=== PATIENT | male | born 1960 | race Caucasian/White ===

== ENCOUNTER 2017-01-30 00:43 | Observation (INO) ==
[2017-01-30] MEDS ORDERED: 0.9 % Sodium Chloride 1,000 ML IVC ONE (02:52)
--- NOTE | 2017-01-30 03:08 | Emergency Department Note ---
Disposition Clinical Impression: Dizziness, nonspecific Disposition: Admitted As Inpatient Condition: Fair Referrals: NO,PCP [Primary Care Provider] - Forms: ED Satisfaction Letter Time of Disposition: 04:58 Dizziness HPI - General Chief Complaint: ED Dizziness Stated Complaint: dizziness, tongue and lips are numb Time Seen by Provider: 01/30/17 02:40 Source: patient Mode of arrival: ambulatory Limitations: no limitations Nursing Notes Reviewed: Yes Vital Signs Reviewed: Yes - History of Present Illness HPI Narrative: Alert, oriented, nontoxic-appearing 56-year-old male presents for evaluation of multiple complaints. The patient complains of dizziness, numbness of his tongue and lips, a brief episode of chest pain that radiated into his subscapular region, generalized muscle "cramps", difficulty focusing on objects , and headache that began at approximately 1830 hrs. yesterday evening. He states that symptoms have subsided substantially, however remain aside from the chest pain. He denies any previous history of episodes similar to this. He denies any fever, chills, nausea, vomiting, or diarrhea. He denies any shortness of breath or abdominal pain. He denies any cough or sputum production. He denies any hemoptysis. He denies any recent injuries or traumas. He denies any weaknesse or paresthesias of the extremities. Pt Subjective Complaint: dizziness Onset (ago): hour(s) (1830) Timing: sudden onset History of similar episodes: No History of trauma: No Severity: moderate Improves with: nothing Worsens with: nothing Associated symptoms: Reports: chest pain. Denies: fever, chills, shortness of breath, nausea, vomiting, palpitations - Related Data Allergies Allergy/AdvReac Type Severity Reaction Status Date / Time No Known Allergies Allergy Verified 01/30/17 00:49 All systems ED: reviewed and negative except as stated. Constitutional: Denies: fever, chills, weakness, weight change Eyes: Denies: eye pain, eye discharge, vision change ENT ED: Denies: ear pain, throat pain, dental pain, hearing loss, epistaxis, congestion, dysphagia Cardiovascular: Denies: chest pain, palpitations, dyspnea on exertion, edema, syncope Respiratory: Denies: cough, dyspnea, wheezes, hemoptysis, stridor Gastrointestinal: Denies: abdominal pain, nausea, vomiting, diarrhea, constipation, hematemesis, melena, hematochezia Genitourinary: Denies: urgency, dysuria, frequency, hematuria Musculoskeletal: Denies: back pain, neck pain, arthralgia, myalgia Integumentary: Denies: rash, abrasion, lesions Neurological: Denies: headache, weakness, numbness, paresthesias, confusion, abnormal gait, vertigo Psychiatric: Denies: anxiety, depression, suicidal thoughts, homicidal thoughts , auditory hallucinations, visual hallucinations Endocrine: Denies: fatigue Hematological/Lymphatic: Denies: easy bleeding, easy bruising Allergic/Immunologic: Denies: facial swelling, urticaria Past Medical History - Past Medical History Attestation: Yes The following information was validated with the patient. Source: patient, nursing notes reviewed Medical history: Reports: hyperlipidemia, hypertension - Social History Smoking Status: Current every day smoker Smokeless Tobacco Status: No Alcohol use: Reports: none Drug use: Reports: none Physical Exam - General General appearance: alert, in no apparent distress - Head Head exam: atraumatic, normocephalic, normal inspection - Eye Eye exam: Present: normal appearance, PERRL, EOMI, nystagmus (Slight horizontal nystagmus as noted most prominently on the right lateral gaze), other (Slight lateral strabismus of the right eye noted upon extraocular muscle testing with right lateral gaze) - ENT ENT exam: mucous membranes moist - Neck Neck exam: Present: normal inspection, full ROM, trachea midline. Absent: tenderness, meningismus, lymphadenopathy - Chest Chest inspection: Present: normal inspection, symmetric chest wall rise - Respiratory Respiratory exam: Present: normal lung sounds bilaterally. Absent: respiratory distress, wheezes, stridor, accessory muscle use, prolonged expiratory phase - Cardiovascular Cardiovascular exam: Present: regular rate, normal rhythm, normal heart sounds - Abdominal Exam Abdominal exam: Present: soft, Non-Tender, normal bowel sounds. Absent: tenderness, distention, guarding, rebound, rigidity - Extremities Exam Extremities exam: Present: normal inspection, full ROM. Absent: tenderness, pedal edema - Neurological Exam Neurological exam: Present: alert, oriented X3 - Expanded Neurological Exam Cranial nerves: EOM function (II, III, IV, ): Normal, facial sensation (V): Normal, facial palsy (VII): Normal, spinal accessory function (XI): Normal, tongue deviation (XII): Normal Cerebellar function: finger to nose: Normal Motor strength - LUE: 5/5 Motor strength - RUE: 5/5 Motor strength - LLE: 5/5 Motor strength - RLE: 5/5 Coma Scale Eye Opening: Spontaneous Coma Scale Motor Response: Obeys Commands Coma Scale Verbal Response: Oriented Coma Scale Total: 15 - Psychiatric Psychiatric exam: Present: normal affect, normal mood - Skin Skin exam: Present: warm, dry, intact, normal color Course Course Narrative: 0330: Discussed this patient's case with Dr. Boswell. Dr. Boswell has had a [id number] evaluation with the patient. Dr. Boswell recommends admission to the hospitalist service for an inpatient neurology consult. The patient is agreeable to this plan. 0455: I spoke with Dr. Goldberg of the hospitalist group who has accepted the patient for admission to the hospitalist service. Vital Signs Temperature 97.7 F 01/30/17 00:45 Pulse Rate 51 01/30/17 00:45 Respiratory Rate 18 01/30/17 00:45 Blood Pressure 123/82 01/30/17 00:45 O2 Sat by Pulse Oximetry 96 01/30/17 00:45 Temperature 97.7 F 01/30/17 00:45 Pulse Rate 51 01/30/17 00:45 Respiratory Rate 18 01/30/17 00:45 Blood Pressure 123/82 01/30/17 00:45 O2 Sat by Pulse Oximetry 96 01/30/17 00:45 Oxygen Delivery Oxygen Delivery Room Air Dizziness - Medical Records Medical records reviewed: Yes I reviewed the patient's medical records. - Lab Data Lab results reviewed: Yes I reviewed the patient's lab results. Lab results narrative: Laboratory Last Values WBC 5.6 K/mcL (4.3-11.1) 01/30/17 04:05 RBC 4.26 M/mcL (4.19-5.50) 01/30/17 04:05 Hgb 13.0 g/dL (12.9-16.9) 01/30/17 04:05 Hct 38.7 % (37.5-50.1) 01/30/17 04:05 MCV 90.8 fL (83.0-100.0) 01/30/17 04:05 MCH 30.5 pg (28.0-33.3) 01/30/17 04:05 MCHC 33.6 g/dL (31.6-35.5) 01/30/17 04:05 RDW 12.4 % (11.5-14.5) 01/30/17 04:05 Plt Count 238 K/mcL (140-400) 01/30/17 04:05 MPV 10.2 fL (9.4-12.4) 01/30/17 04:05 Immature Gran % 0.4 % (0-4) 01/30/17 04:05 Seg Neutrophils % 64.3 % 01/30/17 04:05 Lymphocytes % 22.7 % 01/30/17 04:05 Monocytes % 7.9 % 01/30/17 04:05 Eosinophils % 3.4 % 01/30/17 04:05 Basophils % 1.3 % 01/30/17 04:05 Neutrophils # 3.6 K/mcL (1.6-8.9) 01/30/17 04:05 Lymphocytes # 1.3 K/mcL (0.6-4.6) 01/30/17 04:05 Monocytes # 0.4 K/mcL (0.0-1.3) 01/30/17 04:05 Eosinophils # 0.2 K/mcL (0.0-0.6) 01/30/17 04:05 Basophils # 0.1 K/mcL (0.0-0.2) 01/30/17 04:05 PT 38.6 Seconds (9.4-12.1) H 01/30/17 04:05 INR 3.4 01/30/17 04:05 APTT 74.5 Seconds (26.0-36.0) H 01/30/17 04:05 Sodium 137 mEq/L (136-145) 01/30/17 04:05 Potassium 4.4 mEq/L (3.5-4.5) 01/30/17 04:05 Chloride 103 mEq/L (98-109) 01/30/17 04:05 Carbon Dioxide 26 mEq/L (19-29) 01/30/17 04:05 BUN 28 mg/dL (8-26) H 01/30/17 04:05 Creatinine 1.41 mg/dL (0.72-1.25) H 01/30/17 04:05 Est GFR ( Amer) > 60 (> 60) 01/30/17 04:05 Est GFR (Non-Af Amer) 52 (> 60) L 01/30/17 04:05 BUN/Creatinine Ratio 20 (6-26) 01/30/17 04:05 Glucose 128 mg/dL (70-99) H 01/30/17 04:05 Calculated Osmolality 291 (280-300) 01/30/17 04:05 Calcium 9.7 mg/dL (8.6-10.8) 01/30/17 04:05 Magnesium 2.1 mg/dL (1.6-2.6) 01/30/17 04:05 Total Bilirubin 0.7 mg/dL (0.2-1.2) 01/30/17 04:05 AST 29 Units/L (5-34) 01/30/17 04:05 ALT 20 Units/L (0-55) 01/30/17 04:05 Alkaline Phosphatase 47 Units/L (38-126) 01/30/17 04:05 Ammonia 19 mcmol/L (18-72) 01/30/17 04:05 Troponin I 0.00 ng/mL (0-0.03) 01/30/17 04:05 Serum Total Protein 7.4 g/dL (6.0-8.3) 01/30/17 04:05 Albumin 4.0 g/dL (3.5-5.0) 01/30/17 04:05 Globulin 3.4 g/dL (2.4-3.5) 01/30/17 04:05 Albumin/Globulin Ratio 1.2 (1.1-2.2) 01/30/17 04:05 Result diagrams: 01/30/17 04:05 01/30/17 04:05 Lab Results 01/30/17 01/30/17 01/30/17 Range/Units 04:05 04:05 04:05 WBC 5.6 (4.3-11.1) K/mcL RBC 4.26 (4.19-5.50) M/mcL Hgb 13.0 (12.9-16.9) g/dL Hct 38.7 (37.5-50.1) % MCV 90.8 (83.0-100.0) fL MCH 30.5 (28.0-33.3) pg MCHC 33.6 (31.6-35.5) g/dL RDW 12.4 (11.5-14.5) % Plt Count 238 (140-400) K/mcL MPV 10.2 (9.4-12.4) fL Immature Gran % 0.4 (0-4) % Seg Neutrophils % 64.3 % Lymphocytes % 22.7 % Monocytes % 7.9 % Eosinophils % 3.4 % Basophils % 1.3 % Neutrophils # 3.6 (1.6-8.9) K/mcL Lymphocytes # 1.3 (0.6-4.6) K/mcL Monocytes # 0.4 (0.0-1.3) K/mcL Eosinophils # 0.2 (0.0-0.6) K/mcL Basophils # 0.1 (0.0-0.2) K/mcL PT 38.6 H (9.4-12.1) Seconds INR 3.4 APTT 74.5 H (26.0-36.0) Seconds Sodium 137 (136-145) mEq/L Potassium 4.4 (3.5-4.5) mEq/L Chloride 103 (98-109) mEq/L Carbon Dioxide 26 (19-29) mEq/L BUN 28 H (8-26) mg/dL Creatinine 1.41 H (0.72-1.25) mg/dL Est GFR ( Amer) > 60 (> 60) Est GFR (Non-Af Amer) 52 L (> 60) BUN/Creatinine Ratio 20 (6-26) Glucose 128 H (70-99) mg/dL Calculated Osmolality 291 (280-300) Calcium 9.7 (8.6-10.8) mg/dL Magnesium 2.1 (1.6-2.6) mg/dL Total Bilirubin 0.7 (0.2-1.2) mg/dL AST 29 (5-34) Units/L ALT 20 (0-55) Units/L Alkaline Phosphatase 47 (38-126) Units/L Ammonia (18-72) mcmol/L Troponin I (0-0.03) ng/mL Serum Total Protein 7.4 (6.0-8.3) g/dL Albumin 4.0 (3.5-5.0) g/dL Globulin 3.4 (2.4-3.5) g/dL Albumin/Globulin Ratio 1.2 (1.1-2.2) 01/30/17 01/30/17 Range/Units 04:05 04:05 WBC (4.3-11.1) K/mcL RBC (4.19-5.50) M/mcL Hgb (12.9-16.9) g/dL Hct (37.5-50.1) % MCV (83.0-100.0) fL MCH (28.0-33.3) pg MCHC (31.6-35.5) g/dL RDW (11.5-14.5) % Plt Count (140-400) K/mcL MPV (9.4-12.4) fL Immature Gran % (0-4) % Seg Neutrophils % % Lymphocytes % % Monocytes % % Eosinophils % % Basophils % % Neutrophils # (1.6-8.9) K/mcL Lymphocytes # (0.6-4.6) K/mcL Monocytes # (0.0-1.3) K/mcL Eosinophils # (0.0-0.6) K/mcL Basophils # (0.0-0.2) K/mcL PT (9.4-12.1) Seconds INR APTT (26.0-36.0) Seconds Sodium (136-145) mEq/L Potassium (3.5-4.5) mEq/L Chloride (98-109) mEq/L Carbon Dioxide (19-29) mEq/L BUN (8-26) mg/dL Creatinine (0.72-1.25) mg/dL Est GFR ( Amer) (> 60) Est GFR (Non-Af Amer) (> 60) BUN/Creatinine Ratio (6-26) Glucose (70-99) mg/dL Calculated Osmolality (280-300) Calcium (8.6-10.8) mg/dL Magnesium (1.6-2.6) mg/dL Total Bilirubin (0.2-1.2) mg/dL AST (5-34) Units/L ALT (0-55) Units/L Alkaline Phosphatase (38-126) Units/L Ammonia 19 (18-72) mcmol/L Troponin I 0.00 (0-0.03) ng/mL Serum Total Protein (6.0-8.3) g/dL Albumin (3.5-5.0) g/dL Globulin (2.4-3.5) g/dL Albumin/Globulin Ratio (1.1-2.2) - Radiology Data Radiology results reviewed: Yes I reviewed the patient's radiology results. Chest X-Ray 01/30/17 02:52 IMPRESSION: No acute process. D/ / Sebastien Williamson MD / Sebastien Williamson MD Interpreting Provider: Sebastien Williamson MD Head CT 01/30/17 02:52 IMPRESSION: No acute intracranial abnormality. Right sphenoid sinusitis. D/ / Sebastien Williamson MD / Sebastien Williamson MD Interpreting Provider: Sebastien Williamson MD - EKG Data EKG attestation: Yes I reviewed and interpreted this EKG. EKG results narrative: EKG shows a sinus bradycardia with a moderate T wave abnormality at a rate of 55 bpm. No ectopy noted. No STEMI. EKG reviewed by Dr. Boswell as well. Old EKG for comparison.
[2017-01-30 04:13] LABS: Basophils # 0.1 K/mcL (0.0-0.2); Basophils % 1.3 %; Eosinophils # 0.2 K/mcL (0.0-0.6); Eosinophils % 3.4 %; Hematocrit 38.7 % (37.5-50.1); Immature Granulocytes % 0.4 % (0-4); Lymphocytes # 1.3 K/mcL (0.6-4.6); Lymphocytes % 22.7 %; Mean Corpuscular HGB Conc 33.6 g/dL (31.6-35.5); Mean Corpuscular Hemoglobin 30.5 pg (28.0-33.3); Mean Corpuscular Volume 90.8 fL (83.0-100.0); Mean Platelet Volume 10.2 fL (9.4-12.4); Monocytes # 0.4 K/mcL (0.0-1.3); Monocytes % 7.9 %; Neutrophils # 3.6 K/mcL (1.6-8.9); Platelet Count 238 K/mcL (140-400); Red Blood Count 4.26 M/mcL (4.19-5.50); Red Cell Distribution Width 12.4 % (11.5-14.5); Segmented Neutrophils % 64.3 %
[2017-01-30 04:18] LABS: INR 3.4; Prothrombin Time 38.6 Seconds (9.4-12.1)
[2017-01-30 04:21] LABS: Activated Partial Thrombo Time 74.5 Seconds (26.0-36.0)
[2017-01-30 04:26] LABS: Alanine Aminotransferase 20 Units/L (0-55); Albumin/Globulin Ratio 1.2 (1.1-2.2); Alkaline Phosphatase 47 Units/L (38-126); Aspartate Amino Transferase 29 Units/L (5-34); BUN/Creatinine Ratio 20 (6-26); Bilirubin,Total 0.7 mg/dL (0.2-1.2); Blood Urea Nitrogen 28 mg/dL (8-26); Calcium 9.7 mg/dL (8.6-10.8); Carbon Dioxide 26 mEq/L (19-29); Chloride 103 mEq/L (98-109); Globulin 3.4 g/dL (2.4-3.5); Glucose 128 mg/dL (70-99); Magnesium 2.1 mg/dL (1.6-2.6); Osmolality,Calculated 291 (280-300); Potassium 4.4 mEq/L (3.5-4.5); Sodium 137 mEq/L (136-145); Total Protein 7.4 g/dL (6.0-8.3); eGFR For African Americans > 60 (> 60); eGFR For Non-African Americans 52 (> 60)
[2017-01-30] MEDS ORDERED: Naloxone 0.4 MG/ML INJ IVP PRN (04:55)
[2017-01-30] MEDS ORDERED: Acetaminophen 325 MG TABLET PO PRN (04:55)
[2017-01-30] MEDS ORDERED: Ondansetron 4 MG/2 ML VIAL IVP PRN (04:55)
--- NOTE | 2017-01-30 05:34 | Internal Med History&Physical ---
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 Unlikely to be CVA/TIA as the patient has an INR of 3.4 Will obtain an MRI to further evaluate this. Depending on the results of the MRI, will consider neurology consult. (2) HTN (hypertension) Current visit: Yes Status: Chronic Controlled BP Continue home meds Qualifiers: Hypertension type: essential hypertension Qualified Code(s): I10 - Essential (primary) hypertension (3) Status post mechanical aortic valve replacement Current visit: Yes Status: Chronic INR mildly elevated Continue home dose of coumadin. Check INR and adjust dose accordinglly Internal Medicine - H&P: HPI Chief complaint: Dizziness Admitted From: Emergency Dept Plans for Post Hospital Care: Home History of present illness: Mr. Templeton is a 56 year old male presented to ER due to sudden onset dizziness. Patient states that at baseline, he is usually ambulatory and independent. However, at 6 PM yesterday, he started experiencing a sense of imbalance and swaying all over. He reports double vision on looking to the right but in no other gaze positions. He reports chronic blurry vision. He denies any difficulty swallowing, headache, head injury. He reports some nausea but no vomiting. Denies CP, SOB, wheezing, fever, chills. Reports dry cough. Denies swelling in his legs, rash or bruising. No recent weight changes or changes in his appetite. No urinary symptoms. Past Med Surg Social Fam HX - Past Medical History Attestation: Yes The following information was validated with the patient. Source: patient Medical history: hyperlipidemia, hypertension, other (Aortic dissection) Psychiatric history: no psych history - Past Surgical History Surgical History: other (Mechacinal aortic valve surgery for Aortic Dissection) - Social History Smoking Status: Current every day smoker Smokeless Tobacco Status: No Alcohol use: none Drug use: none Current living situation: Home, With Family Activity Level: Independent ambulation Recent Out of Country Travel Within the Last 8 Weeks: No Exposure or Possible Exposure to Illness During Travel: No - Additional Family History Additional family history: Reviewed; not pertinent Internal Medicine - H&P: Meds Allergies No Known Allergies Allergy (Verified 01/30/17 00:49) All Systems PM: A 10-system review of systems was performed and is negative for pertinent findings except as documented above in the HPI. Review of systems: 10 systems have been reviewed and are negative except as mentioned in the history of present illness - Constitutional Vitals: Temp Pulse Resp BP Pulse Ox 97.7 F 51 18 130/80 96 01/30/17 00:45 01/30/17 00:45 01/30/17 05:19 01/30/17 05:19 01/30/17 00:45 Exam: Gen.: Lying in bed. No acute distress. Eyes: Pupils equal, round and reactive to light. Extraocular muscles intact. ENT: Moist mucous membranes. No oropharyngeal erythema or discharge. Chest: Clear to auscultation bilaterally. No adventitious sounds present. CVS: First and second heart sounds present. No murmurs, rubs or gallops. Abdomen: Soft, nontender, nondistended. Bowel sounds present. No hepatosplenomegaly. Skin: No decubitus ulcers appreciated. EXECUTIVE ADVISOR: Left 6th nerve palsy. Vertical nystagmus present on all extremes. Other cranial nerves intact. Power 5/5 all 4 extremities. Psychiatric: Alert, awake and oriented to time, place and person. Lymphatic system: No lymphadenopathy appreciated Internal Med - H&P Results - Labs CBC & Chem 7: 01/30/17 04:05 01/30/17 04:05 Labs: Short CBC 01/30/17 Range/Units 04:05 WBC 5.6 (4.3-11.1) K/mcL Hgb 13.0 (12.9-16.9) g/dL Hct 38.7 (37.5-50.1) % Plt Count 238 (140-400) K/mcL Neutrophils # 3.6 (1.6-8.9) K/mcL BMP 01/30/17 04:05 Sodium 137 Potassium 4.4 Chloride 103 Carbon Dioxide 26 BUN 28 H Creatinine 1.41 H Glucose 128 H Calcium 9.7 Cardiac Enzymes 01/30/17 Range/Units 04:05 Troponin I 0.00 (0-0.03) ng/mL Liver Function 01/30/17 Range/Units 04:05 Total Bilirubin 0.7 (0.2-1.2) mg/dL AST 29 (5-34) Units/L ALT 20 (0-55) Units/L Alkaline Phosphatase 47 (38-126) Units/L Albumin 4.0 (3.5-5.0) g/dL - EKG Data -: EKG Interpreted by Myself EKG shows normal: sinus rhythm, ST-T waves (T-inversions lateral leads) - EKG Data Prior EKG available for review: no - Impressions ITS Impressions Chest X-Ray 01/30/17 02:52 IMPRESSION: No acute process. D/ / Sebastien Williamson MD / Sebastien Williamson MD Interpreting Provider: Sebastien Williamson MD Head CT 01/30/17 02:52 IMPRESSION: No acute intracranial abnormality. Right sphenoid sinusitis. D/ / Sebastien Williamson MD / Sebastien Williamson MD Interpreting Provider: Sebastien Williamson MD - Diagnostic Studies Chest x-ray Status: image reviewed by me (No acute abnormality detected)
[2017-01-30 05:50] LABS: Bilirubin,Urine Negative (Negative); Blood,Urine Negative (Negative); Clarity,Urine Clear (Clear); Color,Urine Yellow (Yellow); Glucose,Urine (UA) Normal (Normal); Ketones,Urine Negative (Negative); Leukocyte Esterase,Urine Negative (Negative); Nitrite,Urine Negative (Negative); PH,Urine 6.5 pH Units (5.0-8.0); Protein,Urine Negative (Neg-Trace); Specific Gravity,Urine 1.023 (1.010-1.025); Urobilinogen,Urine Normal (Normal)
--- NOTE | 2017-01-30 16:39 | Event Note ---
Date of Encounter: 01/30/17 Time of Encounter: 09:20 Pt was seen and assessed at about 9:20 AM. He is sitting up in bed, alert, oriented, speech clear. He denies headache or chest pain. He denies any vision changes, states that he normally has blurred vision without his glasses. He does state that he feels some better today, his mouth is less tingly than it was last night. He reports some mild right facial numbness. He says that he has not tried to get up, he says he feels less dizzy than he did last night. He says he was sitting inside in the air-conditioning last night watching TV, had sudden onset dizziness with tongue and both bottom and upper lips being numb. Began it 6 PM last night. Female in the room says that she called him at about 11 PM and that she went to his house to check on him and he was staggering and dizzy when he was walking. Patient reports diplopia when looking to the right, there is also horizontal nystagmus when looking to the right.. His pupils are equal and round reactive to light. His facial movements are symmetrical, speech is clear, grasps and movement against resistance are all strong and equal bilaterally both upper and lower extremities. She had MRI today. I received a phone call from MRI department saying that the radiologist saw something and would like to continue this scan with contrast. I okayed that, due to patient's vomiting there were unable to continue the test. Patient also had an episode of vomiting this morning for breakfast. He did not eat much of his breakfast this morning. I discussed the case with Dr. Tan, he ordered ACTH, TSH and a prolactin. They will be drawn in the morning. Dr. Tan will see patient tomorrow. INR is slightly elevated 3.4. Pharmacy is dosing. Continue to monitor labs. Blood pressure has been within normal limits. We will continue to monitor. Patient is on telemetry we will continue that, as well. Chest X-Ray 01/30/17 02:52 IMPRESSION: No acute process. D/ / Sebastien Williamson MD / Sebastien Williamson MD Interpreting Provider: Sebastien Williamson MD Head CT 01/30/17 02:52 IMPRESSION: No acute intracranial abnormality. Right sphenoid sinusitis. D/ / Sebastien Williamson MD / Sebastien Williamson MD Interpreting Provider: Sebastien Williamson MD Brain MRI 01/30/17 05:31 IMPRESSION: Limited due to early termination of the exam. Postcontrast axial and sagittal T1 weighted images were not obtained. There is no acute intracranial abnormality. 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 Mild extension into the bilateral cavernous sinuses, surrounding less than 50% the circumference of the bilateral cavernous internal carotid arteries. D/ / Williams Velázquez MD / Williams Velázquez MD Interpreting Provider: Williams Velázquez MD
--- NOTE | 2017-01-30 17:46 | Electrocardiograph Report ---
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
[2017-01-30] MEDS ORDERED: Warfarin perPT PO PRN (18:00)
[2017-01-30] MEDS: Famotidine 20 MG TABLET PO SCH (21:11)
[2017-01-31 04:30] LABS: Basophils # 0.1 K/mcL (0.0-0.2); Basophils % 1.4 %; Eosinophils # 0.3 K/mcL (0.0-0.6); Eosinophils % 5.5 %; Hematocrit 36.4 % (37.5-50.1); Hemoglobin 12.1 g/dL (12.9-16.9); Immature Granulocytes % 0.3 % (0-4); Lymphocytes # 2.2 K/mcL (0.6-4.6); Lymphocytes % 35.8 %; Mean Corpuscular HGB Conc 33.2 g/dL (31.6-35.5); Mean Corpuscular Hemoglobin 30.2 pg (28.0-33.3); Mean Corpuscular Volume 90.8 fL (83.0-100.0); Mean Platelet Volume 10.2 fL (9.4-12.4); Monocytes # 0.5 K/mcL (0.0-1.3); Monocytes % 8.7 %; Platelet Count 240 K/mcL (140-400); Red Blood Count 4.01 M/mcL (4.19-5.50); Red Cell Distribution Width 12.3 % (11.5-14.5); Segmented Neutrophils % 48.3 %
[2017-01-31 04:33] LABS: INR 2.8; Prothrombin Time 31.6 Seconds (9.4-12.1)
[2017-01-31 04:43] LABS: BUN/Creatinine Ratio 18 (6-26); Blood Urea Nitrogen 25 mg/dL (8-26); Carbon Dioxide 26 mEq/L (19-29); Chloride 106 mEq/L (98-109); Glucose 95 mg/dL (70-99); Osmolality,Calculated 290 (280-300); Potassium 4.1 mEq/L (3.5-4.5); Sodium 138 mEq/L (136-145); eGFR For African Americans > 60 (> 60); eGFR For Non-African Americans 54 (> 60)
[2017-01-31 05:06] LABS: Thyroid Stimulating Hormone 2.329 mcIU/mL (0.350-4.840)
[2017-01-31 05:45] LABS: Prolactin 14.05 ng/mL (3.46-19.40)
--- NOTE | 2017-01-31 07:48 | Neurology - Consult Note ---
Date of Encounter: 01/31/17 Time of Encounter: 07:46 Assessment and Plan (1) Pituitary macroadenoma Current Visit: Yes Status: Acute I did review the MRI scan of the brain which does reveal a 6.7 x 1.9 x 2.5 cm hypoenhancing mass in the sellar region which does extend into the cavernous sinuses and envelops the internal carotid arteries by less than 50%. Although I do not believe that this lesion is directly related to his cause of admission it is something that needs further addressing. I did speak to the attending physician yesterday and recommended getting a TSH and prolactin as well as ACTH levels. The TSH and prolactin levels were normal. This is therefore something that will need to be assessed by a neurosurgeon. I recommended Hugo Altman in [place]. Regarding the episode that initially brought into the hospital I believe it may have been a vasovagal reaction perhaps secondary to the extreme heat versus a panic or anxiety attack. The case was discussed with the internal medicine attending. I do not believe any further neurologic intervention is necessary as a potential to his admitting complaint. History of Present Illness HPI: Mr. Templeton is a 56 year old male who was seen for neurologic evaluation secondary to an abnormal MRI. He was admitted due to symptoms of dizziness. He states he was sitting home 2 days ago watching television and it was very hot in his home. He states that suddenly he experienced numbness of his tongue and of his mouth. He noticed blurred vision and states that when he stood and tried to walk he felt off balance. He denied any headache. He denied any numbness tingling or weakness of the arms or legs. Symptoms were localized only to the tongue and lips. Symptoms lasted for about a day and have now resolved. MRI scan of the brain revealed what appears to be a pituitary macroadenoma. I did ask the patient when he was experiencing problems with peripheral vision and he denies this. Past Med Surg Social Fam HX - Past Medical History Medical history: hyperlipidemia, hypertension, other Psychiatric history: no psych history - Past Surgical History Surgical History: other - Social History Smoking Status: Current every day smoker Packs per day: 0.5 Smokeless Tobacco Status: No Alcohol use: none Drug use: none - Family History Father Hx Family Endocrine Disorder: Yes (DIABETES MELLITUS.) Medications and Allergies Atorvastatin Calcium [Lipitor] 80 mg PO DAILY 01/30/17 [History] Fenofibrate Nanocrystallized [Tricor] 145 mg PO DAILY 01/30/17 [History] Losartan Potassium [Cozaar] 100 mg PO DAILY 01/30/17 [History] Nebivolol HCl [Bystolic] 10 mg PO DAILY 01/30/17 [History] Warfarin [Coumadin] 5 mg PO SUTUTH 01/30/17 [History] Warfarin [Coumadin] 7.5 mg PO MOWEFRSA 01/30/17 [History] Allergies No Known Allergies Allergy (Verified 01/30/17 00:49) All Systems: A 10-system review of systems was performed and is negative for pertinent findings except as documented above in the HPI. Review of Systems: Review of systems is consistent with a history of present illness and is otherwise negative. Physical Examination - Vital Signs Vital Signs: Initial Vital Signs Temp Pulse Resp BP Pulse Ox 97.7 F 51 18 123/82 96 01/30/17 00:45 01/30/17 00:45 01/30/17 00:45 01/30/17 00:45 01/30/17 00:45 - Neurologic Detailed motor examination: full strength in all major muscle groups Motor examination - right side: 5/5: deltoids, biceps, triceps, wrist flexion, wrist extension, coin machine operator, hip flexors, tibialis Anterior, quadriceps, toe extension (EHL), plantarflexion Motor examination - left side: 5/5: deltoids, biceps, triceps, wrist flexion, wrist extension, hip flexors, coin machine operator, quadriceps, tibialis Anterior, toe extension (EHL), plantarflexion Mental Status Examination: awake, alert, oriented to person, oriented to place, oriented to time, follows commands appropriately, answers questions appropriately, no agnosia, no aphasia, no aproxia Cranial nerve examination: PERRL, EOMI, visual graf intact, corneal reflexes brisk symmetrically, sensory to face intact, mastication intact, no facial asymmetry is present, no dysarthria, hearing is intact symmetrically, soft palate elevates bilaterally upon phonation, gag reflex intact, flexes SCM and trapezius muscles symmetrically with full power, tongue protrudes midline, no atrophy or facial fasiculations present Cerebellar examination: no dysmetria, performs finger to nose and heel to simon symmetrically without ataxia, no gait ataxia, no truncal ataxia, no difficulty with rapid alternating movements Results - Laboratory Findings CBC and BMP: 01/31/17 03:49 01/31/17 03:49 Abnormal lab findings: Abnormal lab results RBC 4.01 M/mcL (4.19-5.50) L 01/31/17 03:49 Hgb 12.1 g/dL (12.9-16.9) L 01/31/17 03:49 Hct 36.4 % (37.5-50.1) L 01/31/17 03:49 PT 31.6 Seconds (9.4-12.1) H 01/31/17 03:49 APTT 74.5 Seconds (26.0-36.0) H 01/30/17 04:05 Creatinine 1.36 mg/dL (0.72-1.25) H 01/31/17 03:49 Est GFR (Non-Af Amer) 54 (> 60) L 01/31/17 03:49 Consult Discharge Plan - Plan Referrals: NO,PCP [Primary Care Provider] -
[2017-01-31] MEDS: Famotidine 20 MG TABLET PO SCH (08:22)
[2017-01-31 10:40] VITALS: BP 125/67
--- NOTE | 2017-01-31 12:17 | Discharge Summary ---
Date of Encounter: 01/31/17 Time of Encounter: 10:20 - Discharge Diagnosis (1) Dizziness, nonspecific Priority: Primary Status: Resolved Comments: Patient denies dizziness today. There is no diplopia or nystagmus. There is no facial numbness, speech or blurred vision glasses. Is neurologically intact. He is able to ambulate around his room with a steady gait. He is alert and oriented. Dizziness on admission was most likely vasovagal reaction to being overheated and mildly dehydrated on admission. (2) HTN (hypertension) Priority: Secondary Status: Chronic Comments: Chronic. Well-controlled inpatient setting. Continue home medications. Qualifiers: Hypertension type: essential hypertension Qualified Code(s): I10 - Essential (primary) hypertension (3) Status post mechanical aortic valve replacement Priority: Secondary Status: Chronic Comments: Continue anticoagulation. INR is 2.8 today. Dose was managed by pharmacy. Follow up with primary care (4) Pituitary macroadenoma Priority: Secondary Status: Acute Comments: Patient had MRI yesterday revealed a 6.7 x 1.9 x 2.5 cm pituitary adenoma TSH and prolactin were resulted when he was seen by neurology this morning both were within normal limits. ACTH was not available at that time, and remains unavailable at this time, as well.. Patient has been referred to neurosurgery at [facility]. He was referred to [facility] and has an appointment on February 13 at 3:30 PM and [place] office with Dr. Griselda Lofton. - Discharge Medications Home Medications: Atorvastatin Calcium [Lipitor] 80 mg PO DAILY 01/30/17 [History] Fenofibrate Nanocrystallized [Tricor] 145 mg PO DAILY 01/30/17 [History] Losartan Potassium [Cozaar] 100 mg PO DAILY 01/30/17 [History] Nebivolol HCl [Bystolic] 10 mg PO DAILY 01/30/17 [History] Warfarin [Coumadin] 5 mg PO SUTUTH 01/30/17 [History] Warfarin [Coumadin] 7.5 mg PO MOWEFRSA 01/30/17 [History] Allergies/Adverse Reactions: Allergies No Known Allergies Allergy (Verified 01/30/17 00:49) Procedures/tests Complete & Pending: Procedures Performed prior 72 hours Category Date Time Status MR head/brain wo/w con [MR] Routine MRI 01/30/17 05:31 Completed Date of admission: 01/30/17 05:06 Primary care physician: PCP NO Consults: 01/31/17 07:10 Consult to Neurology [CONS] Routine Consulting Provider: [facility] Reason for Consult: abnormal MRI, dizziness Call Completed: Yes Discharging clinician: Nafisa Hill Anticipated date of discharge: 01/31/17 - Patient Status Disposition: Home, Self-Care Condition: Good Overall status at discharge: patient is back to baseline - Discharge Instructions Follow Up With: Griselda Cox MD [Non-Partnered Physician] - 02/13/17 3:30 pm (Address is [address] [place] [address] You will be receiving a new patient packet with all the information you will need to know. Please bring Photo ID, Insurance card, and disc. ) Additional Instructions: Please follow-up with the neurosurgeon as scheduled. Please follow up with her primary care physician for recheck within 7-10 days. As we discussed, try to avoid becoming overheated, stay hydrated, rest. Please return to the emergency department immediately if you have any other concerning symptoms or for any other problems or concerns. - Diet and Activity Activity: increase activity as tolerated Diet: advance to your usual diet Hospital course: Mr. Templeton is a 56 year old male who presented to the emergency department due to sudden onset dizziness. He said he was sitting at home became suddenly dizzy he was overheated. He said he did not have air conditioning. He was seated on his couch. Symptoms began at 6 PM he started feeling imbalance, and dizzy, diplopia. He did have nystagmus on arrival. He also had numbness around his lips and right-sided facial tingling. He reports chronic blurred vision without glasses, however vision was unchanged with correction. He did not have any difficulty with this speech, swallowing. He denies a headache. He had some vomiting once he was admitted to this unit and while he was an MRI yesterday. There is no chest pain, shortness of breath, wheezing, fever, chills , cough. In the emergency department, head CT was negative. MRI revealed a 6.7 x 1.9 x 2.5 cm hypoenhancing mass in the sellar region, extends in the cavernous sinuses and envelops the internal carotid arteries by less than 50%. TSH and prolactin were within normal limits. ACTH was ordered at the same time and was not, and remains at this time, unavailable. Pt has been referred to Dr Griselda Lofton at [facility] in [place] on February 13 at 1530. Pt denies any deficits today. He has been up amb around his room without any difficulty. He denies facial numbness or tingling, states that his lips are not numb today and denies dizziness or diplopia. Pt states that he is ready to go home. Labs and vital signs have been stable and within normal limits. He is stable for discharge. - Time Spent with Patient Total time spent providing and/or coordinating discharge services: Less than 30 minutes - Constitutional Vitals: Temp Pulse Resp BP Pulse Ox 97.9 F 67 17 125/67 97 01/31/17 10:39 01/31/17 10:39 01/31/17 10:39 01/31/17 10:39 01/31/17 10:39 General appearance: Present: cooperative, A&O X 3, pleasant, no acute distress, answers questions appropriately - Head Head exam: Present: normal inspection - Eye Eye exam: Present: EOMI, normal appearance, PERRL. Absent: nystagmus - ENT ENT exam: Present: mucous membranes moist, normal exam, normal external ear exam - Neck Neck exam general surgery: Present: normal inspection. Absent: lymphadenopathy , tenderness - Respiratory Respiratory exam: Present: decreased breath sounds, CTAB. Absent: rales, rhonchi, wheezes - Cardiovascular Cardiovascular exam: Present: RRR, +S1, +S2. Absent: diastolic murmur, systolic murmur - GI/Abdominal GI/Abdominal exam: Present: distended, normal bowel sounds, soft. Absent: firm , hepatomegaly, tenderness - Extremities Exam Extremities exam: Present: normal capillary refill, warm. Absent: tenderness - Neurological Exam Neurological exam: Present: alert, oriented X3, no focal deficits, strengths equal and symetr throughout. Absent: altered, motor sensory deficit, pronater drift, facial droop, speech deficit
[2017-01-31] MEDS ORDERED: *HR* Warfarin 7.5 MG TABLET PO ONE (18:00)
== END 2017-01-31 13:00 | disposition home or self-care (01) ==
LOC: 3BNU 00:43 → EMEROO 00:43 → 3BNU 05:34
PROVIDERS: ADMIT Internal Medicine Sleep Medicine; ATTEND Registered Nurse